=== PATIENT | female | born 1995 | race Two or more races ===

== ENCOUNTER 2016-05-21 09:45 | Emergency (ER) | payer OTHER ==
[2016-05-21 09:52] VITALS: BMI 39.4
[2016-05-21] MEDS ORDERED: diphenhydrAMINE HCL 25 MG CAPSULE (FP) PO ONE ×2 (10:23→10:33)
--- NOTE | 2016-05-21 10:25 | PDOC ---
History of Present Illness - General Chief Complaint: Pain, Acute Stated Complaint: PAIN Time Seen by Provider: 05/21/16 10:05 History Source: Patient Exam Limitations: No Limitations - History of Present Illness Initial Comments: CHIEF COMPLAINT: 20 y/o afebrile female with no significant PMH c/o itchy rash and continued right flank pain. HISTORY OF PRESENT ILLNESS: The patient states for the past 2 days she's had an itchy rash on her face, chest, arms. SHe is scratching so much the rash is starting to bleed. She also admits to continued right flank pain. She was seen here 3 days ago for flank pain and abd/pelvis CT was negative. She was discharged to home with percocet but hasn't taken any. She denies f/c, n/v/d, CP, SOB, hematuria, dysuria. She denies exposure to new soaps, dyes, detergents , food. She has taken Ibuprofen in the past without rash and she is taking currently. Vital signs on arrival are notable for pulse of 104. REVIEW OF SYSTEMS: GENERAL/CONSTITUTIONAL: No fever/chills. No weakness. No weight change. HEAD, EYES, EARS, NOSE AND THROAT: No change in vision. No ear pain or discharge. No sore throat. CARDIOVASCULAR: No chest pain or shortness of breath. RESPIRATORY: No cough, wheezing, or hemoptysis. GASTROINTESTINAL: +right flank pain. No nausea, vomiting, diarrhea. GENITOURINARY: No dysuria, frequency, or change in urination. MUSCULOSKELETAL: No joint or muscle swelling or pain. No neck or back pain. SKIN: +itchy red rash to face, arms, chest NEUROLOGIC: No headache, vertigo, loss of consciousness, or loss of sensation. PHYSICAL EXAM: GENERAL: The patient is awake, alert, and fully oriented, in no acute distress. She is a morbidly obese, ambulatory female, in NAD or obvious discomfort. HEAD: Normal with no signs of trauma. ENT: Pupils equal, round and reactive to light, extraocular movements intact, sclera anicteric, conjunctiva clear. Neck supple. No lip/tongue swelling. LUNGS: Clear to auscultation bilaterally. Normal excursion. No respiratory distress or use of accessory muscles. CV: RRR, S1/S2, no MRG. Cap refill < 2 sec. ABDOMEN: Soft,obese, tenderness to deep palpation of right flank and right middle abdomen. BACK: No CVA TTP b/l. EXTREMITIES: Normal range of motion, no edema. NEUROLOGICAL: Normal speech, normal gait. CN II-XII grossly intact. PSYCH: Normal mood, normal affect. SKIN: Multiple papules with erythematous base on face, anterior chest and b/l arms. Some papules are scabbed over from scratching. Past History - Past Medical History Allergies/Adverse Reactions: Allergies Allergy/AdvReac Type Severity Reaction Status Date / Time No Known Allergies Allergy Verified 05/21/16 09:53 Home Medications: Ambulatory Orders NK [No Known Home Medication] 05/21/16 Seizures: Yes (no meds) - Surgical History Cholecystectomy: Yes - Psycho/Social/Smoking Cessation Hx Anxiety: No Suicidal Ideation: No Smoking History: Never smoked Information on smoking cessation initiated: No Hx Alcohol Use: No Drug/Substance Use Hx: No Substance Use Type: None Abd/GI Specific PMHX - Complaint Specific PMHX Colitis: No Diverticulitis: No Gall Bladder Disease: Yes GERD: No Hepatitis: No Irritable Bowel Synd (IBS): No Pancreatitis: No GI Ulcer Disease: No *Physical Exam - Vital Signs Last Vital Signs Temp Pulse Resp BP Pulse Ox 98.6 F 104 H 18 147/90 99 05/21/16 09:50 05/21/16 09:50 05/21/16 09:50 05/21/16 09:50 05/21/16 09:50 Medical Decision Making - Medical Decision Making A/P: 20 y/o female seen here 3 days ago with right flank/abd pain here for continued pain and rash. Pt had labs and CT scan of abd performed 3 days ago - will not repeat imaging. Plan is as follows: 1. UA/hcg/culture 2. transvaginal ultrasound 3. Kidney ultrasound 4. PO benadryl Transvaginal Ultrasound IMPRESSION: Normal pelvic exam Kidney ultrasound IMPRESSION: Morphologically normal kidneys, with no evidence of nephrolithiasis , hydronephrosis. Pt will be discharged to home with instructions to take Benadryl for rash and try not to scratch the rash. She was instructed to f/u with her PCP within 1 week for both abd pain and rash. Suggested she return to the ER with any worsening or concerning symptoms. The patient verbalizes understanding of all instructions, has no further questions and is awaiting discharge. *DC/Admit/Observation/Transfer Diagnosis at time of Disposition: Rash, Abdominal pain - Discharge Dispostion Disposition: HOME Condition at time of disposition: Improved - Referrals Referrals: Zarina Bradford MD [Primary Care Provider] - Call tomorrow - Patient Instructions Printed Discharge Instructions: DI for Rash, DI for Abdominal Pain-Adult Additional Instructions: Discharge Instructions: -Take over the counter benadryl for itching -Try to avoid scratching the mask -Follow up with your primary care physician within 1 week -Return to the ER with any worsening or concerning symptoms
[2016-05-21 10:55] LABS: URINE APPEARANCE SLCLOUDY; URINE BILIRUBIN NEGATIVE (NEGATIVE); URINE BLOOD NEGATIVE (NEGATIVE); URINE COLOR YELLOW; URINE GLUCOSE (UA) NEGATIVE (NEGATIVE); URINE KETONE NEGATIVE (NEGATIVE); URINE NITRITE NEGATIVE (NEGATIVE); URINE PROTEIN NEGATIVE (NEGATIVE); URINE UROBILINOGEN NEGATIVE E.U./dl (0.2-1.0)
[2016-05-21 10:59] LABS: URINE LEUK ESTERASE 2+ (NEGATIVE)
[2016-05-21 11:01] LABS: URINE BACTERIA RARE /hpf (NONE SEEN); URINE MUCUS RARE; URINE RBC 3 /hpf (0-3); URINE WBC 11 /hpf (3-5)
[2016-05-21 14:24] VITALS: BP 121/69; PULSE 85; TEMP 98.1
== END 2016-05-21 14:24 | disposition home or self-care (01) ==
LOC: JER 09:45
DX: R21 Rash and other nonspecific skin eruption (principal); R10.31 Right lower quadrant pain
CPT/HCPCS: 76775-TC; 76830-TC; 81003; 81015; 84703; 87086; 99284-25

== ENCOUNTER 2016-12-31 17:58 | Emergency (ER) | payer OTHER ==
[2016-12-31 18:13] VITALS: BMI 35.4
[2016-12-31 18:49] VITALS: BP 131/69; PULSE 81; TEMP 98.1
--- NOTE | 2016-12-31 20:00 | PN ---
Progress Note (short form) - Note Progress Note: pt sent from er with vicky mcnair at 21 weeks. She was cleared obstetrically and sent back to the ER
== END 2016-12-31 19:50 | disposition home or self-care (01) ==
LOC: SUPCPDRO 17:58 → JER 17:58
DX: O26.892 Other specified pregnancy related conditions, second trimester (principal); Z3A.22 22 weeks gestation of pregnancy
CPT/HCPCS: 99281-25

== ENCOUNTER 2017-04-22 20:07 | Emergency (ER) | payer OTHER ==
--- NOTE | 2017-04-22 20:12 | PDOC ---
Rapid Medical Evaluation Medical Evaluation: Allergies Allergy/AdvReac Type Severity Reaction Status Date / Time No Known Allergies Allergy Verified 04/14/17 01:27 04/22/17 20:11 I have performed a brief in person evaluation of this patient. The patient presents with chief complaint of : lower abd pain 38 weeks , no vaginal bleeding , Pertinent PE findings: 38 weeks with sharp lower abd pain I have ordered the following: sent to labor and delivery The patient will proceed to the ER for further evaluation.
[2017-04-22 20:13] VITALS: BMI 38.6
[2017-04-22 21:52] VITALS: BP 105/64; PULSE 82; TEMP 98.3
== END 2017-04-22 23:00 | disposition left against medical advice (07) ==
LOC: JER 20:07
DX: Z53.21 Procedure and treatment not carried out due to patient leaving prior to being seen by health care provider (principal)
CPT/HCPCS: 99281-25

== ENCOUNTER 2017-05-14 15:00 | Inpatient (IN) | payer OTHER ==
[2017-05-14] MEDS ORDERED: DINOPROSTONE 10 MG VAGINAL SUPPOSITORY VG ONE (15:45)
[2017-05-14 15:55] VITALS: BMI 38.6
[2017-05-14] MEDS ORDERED: BUTORPHANOL TARTRATE 1 MG/ML VIAL IVPB ONE (18:04)
[2017-05-14] MEDS ORDERED: PROMETHAZINE HCL 25 MG/1 ML VIAL IVPUSH ONE (18:04)
[2017-05-14] MEDS ORDERED: SODIUM PHOSPHATE/NA BIPHOS 133 ML ENEMA PR ONE (18:07)
--- NOTE | 2017-05-14 18:14 | HP ---
Past Medical History - Primary Care Physician PCP:: Hanh Blanco - Admission Chief Complaint: 21 yrs , 41 weeks by sono admitted for Induction of labor. sono on 05/10/17 Sliup,, cephalic, vx , efw 7'5" , luis e 9.1 cm . post dates monitired by NST & Bpp 12/25 History of Present Illness: Pnc at , [facility] no wt gain during pregn, intially loss of wt from 237 t0 231 , gradually to 224 , gained back to 227, again down to 224 lbs then maintained . serial sonogram done for growth by MFM , reviewed. NT Screen & Modified Sequential neg . 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 No: Hepatitis B Renal/: No: UTI ...: 1 ...Para: 0 ...LMP: 07/31/16 ... Weeks Gestation by Dates: 41 ...EDC by Dates: 05/07/17 ...EDC by Sono: 05/07/17 (41 weeks by sono ) Heme/Onc: No: Anemia Infectious Disease: No: AIDS, HIV, STD's Psych: No: Addictions, Anxiety, Bipolar, Depression Endocrine: No: Diabetes Mellitus - Past Surgical History Past Surgical History: Yes: Cholecystectomy (2010) Hx Myomectomy: No Hx Transabdominal Cerclage: No - Smoking History Smoking history: Never smoked Have you smoked in the past 12 months: No - Alcohol/Substance Use Hx Alcohol Use: No History of Substance Use: reports: None - Social History History of Recent Travel: No Home Medications - Allergies Allergies/Adverse Reactions: Allergies Allergy/AdvReac Type Severity Reaction Status Date / Time No Known Allergies Allergy Verified 05/10/17 13:15 - Home Medications Home Medications: Ambulatory Orders Vit No.130/Iron/Folic [ Vitamins] 1 each PO DAILY 04/14/17 Ferrous Gluconate [Iron] 256 mg PO DAILY 05/10/17 Physical Exam - Maternity Vital Signs: Vital Signs Temperature 97.6 F 05/14/17 16:00 Pulse Rate 80 05/14/17 17:00 Respiratory Rate 18 05/14/17 17:00 Blood Pressure 122/70 05/14/17 17:00 O2 Sat by Pulse Oximetry (%) Selected Entries 05/14/17 15:46 Weight 225 lb Constitutional: Yes: Well Nourished, No Distress, Obese Eyes: Yes: WNL HENT: Yes: WNL, Normocephalic Neck: Yes: WNL Cardiovascular: Yes: WNL, Regular Rate and Rhythm Lungs: Clear to auscultation Breast(s): Yes: WNL - Abdominal Exam/OB Fundal Height: 40 Number of Fetuses: Single Presentation: Vertex Contractions: Yes Regularity: Irregular (7-8 min) Intensity: Unaware Monitor Mode: External Heart Rate (range): 140-150 Heart Rate Location: [facility] Category: I Accelerations: Uniform Decelerations: None - Vaginal Exam/OB Vaginal Bleediing: No Speculum Exam: No Dilatation (cm): close Effacement (%): 50% Amniotic Membrane Status: Intact Presentation: Vertex/Position Station: -3 (exam at 5.35 PM) - Physical Exam Musculoskeletal: Yes: WNL Extremities: Yes: WNL. No: Calf Tenderness Edema: Yes Edema: LLE: 1+, RLE: 1+ Integumentary: Yes: Incision (lap choly scars), Tattoos Deep Tendon Reflex Grade: Normal +2 ...Motor Strength: WNL Psychiatric: Yes: WNL, Alert, Oriented - Labs Lab Results: Laboratory Tests 05/14/17 05/14/17 05/14/17 18:00 18:00 18:00 WBC 7.3 D Hgb 11.2 D Hct 33.7 D Plt Count 246 Neutrophils % 62.1 Lymphocytes % 30.2 Monocytes % 7.1 PT with INR 10.80 INR 0.96 PTT (Actin FS) 26.9 Sodium Potassium Chloride Carbon Dioxide BUN Creatinine Random Glucose Blood Type B POSITIVE 05/14/17 18:00 WBC Hgb Hct Plt Count Neutrophils % Lymphocytes % Monocytes % PT with INR INR PTT (Actin FS) Sodium 139 Potassium 3.7 Chloride 108 H Carbon Dioxide 21 D BUN 6 L D Creatinine 0.4 L D Random Glucose 93 Blood Type Laboratory Tests 05/14/17 18:00 Blood Type B POSITIVE Antibody Screen Negative Problem List - Problems (1) Post term at 41 weeks gestation Code(s): O48.0 - POST-TERM ; Z3A.41 - 41 WEEKS GESTATION OF (2) Elective induction of labor planned Code(s): TXC9985 - (3) Obese Code(s): E66.9 - OBESITY, UNSPECIFIED Qualifiers: Obesity type: due to excess calories Obesity classification: adult class 2 (BMI 35 - 39.9) Assessment/Plan 21 yrs 41 weeks gestation gbs neg , admitted for induction of labor Plan Cervidil inserted at 5.35 PM vaginal delivery trial
[2017-05-14] MEDS ORDERED: DEXTROSE 5%-LACTATED RINGERS 1,000 ML IV SCH (18:15)
[2017-05-14 18:56] LABS: BASO % 0.4 % (0-2.0); EOS % 0.2 % (0-4.5); HEMATOCRIT 33.7 % (32.4-45.2); HEMOGLOBIN 11.2 GM/dL (10.7-15.3); LYMPH % 30.2 % (8-40); MCH 27.7 pg (25.7-33.7); MCHC 33.2 g/dl (32.0-36.0); MEAN CELL VOLUME 83.2 fl (80-96); MEAN PLT VOLUME 9.3 fl (7.5-11.1); MONO % 7.1 % (3.8-10.2); NEUT % 62.1 % (42.8-82.8); PLATELET COUNT 246 K/MM3 (134-434); RBC 4.05 M/mm3 (3.60-5.2); RDW 14.3 % (11.6-15.6); WHITE BLOOD COUNT 7.3 K/mm3 (4.0-10.0)
[2017-05-14 19:17] LABS: ANION GAP 10 (8-16); BLOOD UREA NITROGEN 6 mg/dL (7-18); CALCIUM 7.9 mg/dL (8.5-10.1); CHLORIDE 108 mmol/L (98-107); CO2 21 mmol/L (21-32); CREATININE 0.4 mg/dL (0.55-1.02); GLUCOSE,RANDOM 93 mg/dL (74-106); POTASSIUM 3.7 mmol/L (3.5-5.1); SODIUM 139 mmol/L (136-145)
[2017-05-14 19:46] LABS: INR 0.96 (0.82-1.09); PROTHROMBIN TIME (PATIENT) 10.8 SEC (9.98-11.88)
[2017-05-14 19:48] LABS: ACTIVATED PTT 26.9 SECONDS (26.9-34.4)
[2017-05-14] MEDS ORDERED: BUTORPHANOL TARTRATE 1 MG/ML VIAL ONE ×2 (23:19)
[2017-05-14] MEDS ORDERED: PROMETHAZINE HCL 25 MG/1 ML VIAL ONE (23:19)
[2017-05-15] MEDS ORDERED: FENTANYL/BUPIVACAINE/NS/PF - PCEA - 50 ML DISP.SYRIN EP ONE ×2 (01:59→06:32)
[2017-05-15] MEDS: ELECTROLYTE-148 SOLN 1,000 ML IV SCH ×2 (02:00→03:50)
--- NOTE | 2017-05-15 02:04 | PN ---
Progress Note, Labor Vaginal Exam #1 Labor Exam Date: 05/15/17 Labor Exam Time: 01:50 Heart Rate (range): 140-150 Dilatation: 3 Effacement (%): 70 Amniotic Membrane Status: Intact Presentation: Vertex/Position Station: -1 Remarks: fhr cat-1 uc irregular cervidil in vagina pt was given stadol 2mg + phenergan at 11.20 pm 05/14/17 c/o pain requests for epidural given at 3.00Am Selected Entries 05/15/17 05/15/17 00:00 01:00 Temperature 98.5 F Pulse Rate 68 67 Blood Pressure 120/66 131/75 3.25 am cervidil removed pelvic findings same as above varable decel noted, , turn patient on lt side fhr corrected uc 4-5-6 min apart plan pitocin augmentation Vaginal Exam #2 Labor Exam Date: 05/15/17 Labor Exam Time: 06:50 Heart Rate (range): 150 Dilatation: 5 Effacement (%): 100 Amniotic Membrane Status: Ruptured (AROM clear) Presentation: Vertex/Position Station: 0 Remarks: FHR cat-1 uc 2-4 min scalp electrode applied patient does not have pain relief with epidural . call anesthesiologist to revise epidural analgesia , done at 7.45 AM Selected Entries 05/15/17 05/15/17 06:00 06:30 Temperature 97.6 F Pulse Rate 75 72 Blood Pressure 122/81 120/76 Vaginal Exam #3 Labor Exam Date: 05/15/17 Labor Exam Time: 09:10 Heart Rate (range): 140 Dilatation: 10 Effacement (%): 100 Amniotic Membrane Status: Ruptured Presentation: Vertex/Position Station: +2 Remarks: fhr cat-1 uc q 2-3 min encourage tp push
[2017-05-15] MEDS ORDERED: FENTANYL/BUPIVACAINE/NS/PF - PCEA - 50 ML DISP.SYRIN EP SCH (03:00)
[2017-05-15] MEDS ORDERED: OXYTOCIN 15 UNITS/ LR 250 ML 15 UNIT/250 ML INFUS.BAG IVPB SCH (04:00)
[2017-05-15] MEDS ORDERED: OXYTOCIN 20 UNITS in 0.9% NS 40 UNIT/2,000 ML INFUS.BAG IV ONE (09:12)
[2017-05-15] MEDS ORDERED: LIDOCAINE HCL 1% PRESERVATIVE FREE - 30ML VIAL ONE (09:18)
[2017-05-15] MEDS: OXYTOCIN 20 UNITS in 0.9% NS 20 UNIT/1,000 ML INFUS.BAG IV SCH ×2 (09:48→11:00)
[2017-05-15] MEDS: IBUPROFEN 600 MG TABLET (FP) PO PRN ×2 (10:30→21:08)
[2017-05-15] MEDS: ACETAMINOPHEN 325 MG TABLET (FP) PO PRN ×2 (10:30→21:07)
[2017-05-15] MEDS ORDERED: BENZOCAINE 20% 57 GM BOTTLE TP PRN (10:38)
[2017-05-15] MEDS ORDERED: BENZOCAINE 28 GM HEMORRHOIDAL OINTMENT TP PRN (10:38)
[2017-05-15] MEDS ORDERED: METHYLERGONOVINE MALEATE 0.2 MG/1 ML AMP IM PRN (10:38)
[2017-05-15] MEDS ORDERED: WITCH HAZEL 50% (TUCKS) 40 PAD/JAR PAD TP PRN (10:38)
[2017-05-15] MEDS ORDERED: BISACODYL 10 MG SUPP.RECT RC PRN (10:38)
[2017-05-15] MEDS ORDERED: oxyCODONE HCL 5 MG TABLET PO PRN (10:38)
--- NOTE | 2017-05-15 10:48 | PN ---
Delivery - Delivery Vaginal Delivery: No Problems, Spontaneous (loose loop of cord around the neck x1 untangled before delivary of shoulder) Type of Anesthesia: Local, Epidural Episiotomy/Laceration: Midline (sutured with chr catguu #2/0 in layers) EBL (cc): 400 Delivery, Single - Stages of Labor Date 1st Stage Initiatied: 05/14/17 Time 1st Stage Initiated: 23:00 Date 2nd Stage Initiated: 05/15/17 Time 2nd Stage Initiated: 09:10 Date of Delivery: 05/15/17 Time of Delivery: 09:44 Date Placenta Delivered: 05/15/17 Time Placenta Delivered: 09:48 Placenta: Yes: Spontaneous, Uterine Exploration - Condition of Infant Molding 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 PNC at [address] [place] [address] Cervidil inserted on 05/14/17 Stadol + phenergan iv followed by epidural analgesia was given Pitocin Augmentation was started Intrapartum course was uneventful
[2017-05-15] MEDS: FERROUS SO4 325 MG TABLET (FP) PO SCH (16:51)
[2017-05-16] MEDS: ACETAMINOPHEN 325 MG TABLET (FP) PO PRN ×4 (06:11→22:01)
[2017-05-16] MEDS: IBUPROFEN 600 MG TABLET (FP) PO PRN ×4 (06:12→22:01)
[2017-05-16 08:39] LABS: BASO % 0.3 % (0-2.0); EOS % 0.6 % (0-4.5); HEMATOCRIT 28.5 % (32.4-45.2); HEMOGLOBIN 9.4 GM/dL (10.7-15.3); LYMPH % 24.2 % (8-40); MCH 27.7 pg (25.7-33.7); MCHC 32.9 g/dl (32.0-36.0); MEAN CELL VOLUME 84.1 fl (80-96); MEAN PLT VOLUME 9.2 fl (7.5-11.1); MONO % 5.8 % (3.8-10.2); NEUT % 69.1 % (42.8-82.8); PLATELET COUNT 185 K/MM3 (134-434); RBC 3.38 M/mm3 (3.60-5.2); RDW 14.5 % (11.6-15.6); WHITE BLOOD COUNT 10.2 K/mm3 (4.0-10.0)
[2017-05-16] MEDS: FERROUS SO4 325 MG TABLET (FP) PO SCH ×2 (08:57→17:07)
[2017-05-16] MEDS: PRENATAL VITAMINS W/ FOLIC ACID TABLET (FP) PO SCH (09:23)
--- NOTE | 2017-05-16 09:28 | PN ---
Post Progress Note - Subjective Subjective: 21 yo Para 1 status post vaginal delivery, seen and evaluated. Doing well, no complaints. Post Day: 1 Type of Delivery: Vital Signs: Vital Signs Temperature 98.6 F 05/16/17 08:20 Pulse Rate 70 05/16/17 08:20 Respiratory Rate 18 05/16/17 08:20 Blood Pressure 108/53 05/16/17 08:20 O2 Sat by Pulse Oximetry (%) 100 05/15/17 11:00 Breast Exam: Yes: Soft Uterus: Yes: Fundus Firm Abdomen/GI: Yes: Abdomen soft, Tolerating PO Lochia: Yes: Rubra Lochia, amount: Small Extremities: Yes: Calves non-tender Activity: Ambulating - Labs Labs: CBC WBC 10.2 K/mm3 (4.0-10.0) H D 05/16/17 08:00 RBC 3.38 M/mm3 (3.60-5.2) L 05/16/17 08:00 Hgb 9.4 GM/dL (10.7-15.3) L D 05/16/17 08:00 Hct 28.5 % (32.4-45.2) L D 05/16/17 08:00 MCV 84.1 fl (80-96) 05/16/17 08:00 MCH 27.7 pg (25.7-33.7) 05/16/17 08:00 MCHC 32.9 g/dl (32.0-36.0) 05/16/17 08:00 RDW 14.5 % (11.6-15.6) 05/16/17 08:00 Plt Count 185 K/MM3 (134-434) D 05/16/17 08:00 MPV 9.2 fl (7.5-11.1) 05/16/17 08:00 Neutrophils % 69.1 % (42.8-82.8) 05/16/17 08:00 Lymphocytes % 24.2 % (8-40) 05/16/17 08:00 Monocytes % 5.8 % (3.8-10.2) 05/16/17 08:00 Eosinophils % 0.6 % (0-4.5) D 05/16/17 08:00 Basophils % 0.3 % (0-2.0) 05/16/17 08:00 Problem List - Problems (1) Status post normal vaginal delivery Code(s): [id number] - Assessment/Plan Status post vaginal delivery Stable Continue routine care
[2017-05-16] MEDS ORDERED: DIPHTH,PERTUSS(ACELL),TET 0.5 ML DISP.SYRIN IM ONE (11:45)
[2017-05-16] MEDS ORDERED: FLU VACC QS2017-18 36MOS UP/PF 60 MCG/0.5 ML SYRINGE IM ONE (13:00)
[2017-05-16] MEDS ORDERED: SENNOSIDES/DOCUSATE COMBO (SENNA PLUS) TABLET (UD) PO PRN (22:00)
[2017-05-17] MEDS: IBUPROFEN 600 MG TABLET (FP) PO PRN (02:58)
[2017-05-17] MEDS: ACETAMINOPHEN 325 MG TABLET (FP) PO PRN (03:00)
[2017-05-17] MEDS: FERROUS SO4 325 MG TABLET (FP) PO SCH (08:09)
[2017-05-17 08:57] VITALS: BP 138/88; PULSE 66; TEMP 97.5
--- NOTE | 2017-05-17 09:34 | DS ---
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 Vital Signs: Vital Signs Temperature 97.5 F L 05/17/17 08:56 Pulse Rate 66 05/17/17 08:56 Respiratory Rate 20 05/17/17 08:56 Blood Pressure 138/88 05/17/17 08:56 O2 Sat by Pulse Oximetry (%) 100 05/15/17 11:00 Constitutional: Yes: Well Nourished Eyes: Yes: WNL HENT: Yes: WNL Neck: Yes: WNL Cardiovascular: Yes: WNL, Regular Rate and Rhythm Respiratory: Yes: WNL Gastrointestinal: Yes: WNL, Normal Bowel Sounds ...Rectal Exam: Yes: WNL Renal/: Yes: WNL Pelvis: Yes: WNL External Genitalia: Yes: Normal ....Post : Yes: Uterus firm, Uterus non-tender, Moderate lochia rubra ( perineum episiotomy healing , soreness less) Breast(s): Yes: WNL (soft , BF) Musculoskeletal: Yes: WNL Extremities: Yes: WNL. No: Calf Tenderness Edema: Yes Edema: LLE: 1+, RLE: 1+ Integumentary: Yes: Tattoos Neurological: Yes: WNL, Alert, Oriented ...Motor Strength: WNL Psychiatric: Yes: WNL, Alert, Oriented Labs: CBC, BMP 05/16/17 08:00 05/14/17 18:00 Delivery - Delivery Vaginal Delivery: No Problems, Spontaneous (loose loop of cord around the neck x1 untangled before delivary of shoulder) Type of Anesthesia: Local, Epidural Episiotomy/Laceration: Midline EBL (cc): 400 Delivery, Single - Stages of Labor Date 1st Stage Initiatied: 05/14/17 Time 1st Stage Initiated: 23:00 Date 2nd Stage Initiated: 05/15/17 Time 2nd Stage Initiated: 09:10 Date of Delivery: 05/15/17 Time of Delivery: 09:44 Time Placenta Delivered: 09:48 Placenta: Yes: Spontaneous, Uterine Exploration - Condition of Infant 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 PNC at , [facility] Cervidil inserted on 05/14/17 Stadol + phenergan iv followed by epidural analgesia was given Pitocin Augmentation was started Intrapartum course was uneventful pp course uneventful . anemia counselled discharge today Discharge Summary Reason For Visit: INDUCTION OF LABOR Current Active Problems Anemia (Acute) Elective induction of labor planned (Acute) Obese (Acute) Post term at 41 weeks gestation (Acute) Status post normal vaginal delivery (Acute) Condition: Stable - Instructions Diet, Activity, Other Instructions: Post Instructions DIET: Continue good diet high in protein, calcium, and iron rich foods. Drink at least eight (8) glasses of water daily in addition to other fluids. ct Regular diet MEDICATIONS: Continue vitamins and iron as previously directed. Motrin and Tylenol may be taken for minor discomfort. ACTIVITY: Mild to moderate exercise may be started in two (2) weeks. Take frequent rest periods. Resume normal activity after six (6) week check up. WOUND CARE OF OPERATIVE SITE: Continue use of perineal bottle until vaginal discharge stops. Keep area clean. Shower daily. Keep abdominal wound dry. Report any drainage or redness to physician. Tub baths, tampons and douches are not permitted for [address] Breast feeding & or Bottle feeding BREAST CARE: (For those that are not breast feeding): If engorgement occurs: Wear tight fitting bra. Take Tylenol or Motrin for pain. Apply cold packs (ice in bags to each breast ) FAMILY PLANNING: There are many control alternatives to pursue and they should be discussed at your first office visit. You may resume sexual activity after your six (6) week check up. (Remember, breast feeding is not a contraceptive) NEXT PHYSICIAN APPOINTMENT: Be certain to call for a six (6) week appointment, unless otherwise directed. Call Clinic or got to Emergency Dept if you have any of the following: Heavy vaginal bleeding Painful urination Leg pain Unusual odor noted to vaginal bleeding High fever Red streaking noted on breast Referrals: Hanh Blanco MD [Staff Physician] - Disposition: HOME - Home Medications Comprehensive Discharge Medication List: Ambulatory Orders Vit No.130/Iron/Folic [ Tablet] 1 each PO DAILY 04/14/17 Ferrous Gluconate [Iron] 256 mg PO DAILY 05/10/17 Acetaminophen [Tylenol .Regular Strength -] 650 mg PO Q3H PRN tablet 05/16/17 Ferrous Sulfate [Feosol] 325 mg PO BIDWM #60 tab 05/16/17 Ibuprofen [Motrin -] 200 mg PO Q4H PRN tablet 05/16/17 Vitamins (Sjr) - 1 tab PO DAILY tablet 05/16/17
[2017-05-17] MEDS: PRENATAL VITAMINS W/ FOLIC ACID TABLET (FP) PO SCH (09:57)
== END 2017-05-17 13:00 | disposition home or self-care (01) | DRG 560 ==
LOC: JLDR 15:00 → J3W 05-15 12:15
PROVIDERS: ADMIT Obstetrics & Gynecology; ATTEND Obstetrics & Gynecology
PROC: 10E0XZZ Delivery of Products of Conception, External Approach (ICD-10-PCS; principal; 2017-05-15)
DX: O48.0 Post-term pregnancy (principal); O69.81X0 Labor and delivery complicated by cord around neck, without compression, not applicable or unspecified; O99.213 Obesity complicating pregnancy, third trimester; E66.09 Other obesity due to excess calories; Z68.38 Body mass index [BMI] 38.0-38.9, adult; Z3A.41 41 weeks gestation of pregnancy; Z37.0 Single live birth
CPT/HCPCS: 36415; 59409; 80048; 85025; 85610; 85730; 86593; 86850; 86900; 86901; 90686; 90715; G0008

== ENCOUNTER 2017-06-30 02:31 | Emergency (ER) | payer OTHER ==
[2017-06-30 02:55] VITALS: BP 143/106; PULSE 60; TEMP 98; BMI 36.7
[2017-06-30] MEDS ORDERED: BUPIVACAINE HCL/PF (5 MG/ML) 30 ML VIAL IJ ONE (02:58)
--- NOTE | 2017-06-30 02:58 | PDOC ---
History of Present Illness - General Chief Complaint: Pain Stated Complaint: FEVER/VOMITING/STOMACH PAIN/EAR PAIN Time Seen by Provider: 06/30/17 02:43 - History of Present Illness Initial Comments: 06/30/17 02:58 CHIEF COMPLAINT: pain HISTORY OF PRESENT ILLNESS: 21 yo F with no significant PMH presents to ED with pain "from inside the top of my mouth to my ear." Patient reports having a broken tooth and was told that she has "to get my wisdom teeth out." Patient reports that she "had a fever yesterday" but denies any fever today. She denies any URI symptoms but reports multiple episodes of vomiting today from the pain. Patient reports that she is currently on her period and there is no chance of . No recent travel or sick contacts. PAST MEDICAL HISTORY: Denies past medical history FAMILY HISTORY: Denies SOCIAL HISTORY: Denies tobacco, alcohol, illicit drug use. SURGICAL HISTORY: Denies ALLERGIES: No known drug allergies REVIEW OF SYSTEMS General/Constitutional: Fever yesterday, none now. Denies weakness, weight change. HEENT: Left upper tooth pain radiating to left ear and jaw. Denies change in vision. Denies sore throat. Cardiovascular: Denies chest pain or shortness of breath. Respiratory: Denies cough, wheezing, or hemoptysis. Gastrointestinal: Denies nausea, vomiting, diarrhea or constipation. Denies rectal bleeding. Genitourinary: Denies dysuria, frequency, or change in urination. Musculoskeletal: Denies joint or muscle swelling or pain. Denies neck or back pain. Skin and breasts: Denies rash or easy bruising. Neurologic: Denies headache, vertigo, loss of consciousness, or loss of sensation. PHYSICAL EXAM General Appearance: Well-appearing, appropriately dressed. No apparent distress. HEENT: Poor dentition with multiple fillings and caries. EOMI, PERRLA, normal ENT inspection, normal voice, TMs normal, pharynx normal. No conjunctival pallor. No photophobia, scleral icterus. Respiratory/Chest: Lungs CTAB. Cardiovascular: RRR. S1, S2. Gastrointestinal/Abdominal: Normal bowel sounds. Abdomen soft, non-distended. No tenderness or rebound tenderness. No organomegaly, pulsatile mass, guarding , hernia, hepatomegaly, splenomegaly. Musculoskeletal/Extremities: Normal inspection. FROM of all extremities, normal capillary refill. Pelvis Stable. No CVA tenderness. No tenderness to extremities, pedal edema, swelling, erythema or deformity. Integumentary: Appropriate color, dry, warm. No cyanosis, erythema, jaundice or rash Neurologic: transport engineer II-XII intact. Fully oriented, alert. Appropriate mood/affect. Motor strength 5/5. No appreciable EOM palsy, facial droop or sensory deficit. 06/30/17 03:26 Past History - Past Medical History Allergies/Adverse Reactions: Allergies Allergy/AdvReac Type Severity Reaction Status Date / Time No Known Allergies Allergy Verified 06/30/17 02:51 Home Medications: Ambulatory Orders Acetaminophen W/ Codeine #3 [Tylenol # 3 -] 1 tab PO Q8H PRN #10 tablet MDD 3 Clindamycin [Cleocin -] 300 mg PO Q6HPO #28 capsule 06/30/17 Asthma: No Cancer: No Cardiac Disorders: No COPD: No Diabetes: No HTN: No Seizures: No Thyroid Disease: No Other medical history: Pt denies - Surgical History Cholecystectomy: Yes - Suicide/Smoking/Psychosocial Hx Smoking History: Never smoked Have you smoked in the past 12 months: No Information on smoking cessation initiated: No Hx Alcohol Use: No Drug/Substance Use Hx: No Substance Use Type: None Hx Substance Use Treatment: No *Physical Exam - Vital Signs Last Vital Signs Temp Pulse Resp BP Pulse Ox 98.0 F 60 18 143/106 100 06/30/17 02:51 06/30/17 02:51 06/30/17 02:51 06/30/17 02:51 06/30/17 02:51 Medical Decision Making - Medical Decision Making 06/30/17 03:29 21 yo F with no significant PMH presents to ED with pain "from inside the top of my mouth to my ear." Superior alveolar nerve block performed. Patient expressed immediate relief. Will rx Clindamycin and Tylenol #3. Advised patient to take medications as prescribed and follow up with dentist on Saturday. Advised patient of signs and symptoms for return to ED. Patient verbalized understanding and agrees to plan. *DC/Admit/Observation/Transfer Diagnosis at time of Disposition: Pain, dental - Discharge Dispostion Disposition: HOME Condition at time of disposition: Stable Admit: No - Prescriptions Prescriptions: Acetaminophen W/ Codeine #3 [Tylenol # 3 -] 1 tab PO Q8H PRN #10 tablet MDD 3 PRN Reason: Pain - Referrals Referrals: Zarina Bradford MD [Primary Care Provider] - - Patient Instructions Printed Discharge Instructions: DI for Dental Pain Additional Instructions: Take medications as prescribed. Do NOT drive, drink alcohol, or operate machinery while taking Tylenol #3. As discussed, you MUST follow up with your dentist on Saturday. If you develop any persistent fevers, vomiting, diarrhea, or any new or worsening symptoms, please return to the ER. - Post Discharge Activity
[2017-06-30] MEDS ORDERED: BUPIVACAINE HCL/PF 0.5% (5MG/ML) 10 ML VIAL ONE (03:13)
[2017-06-30] MEDS ORDERED: LIDOCAINE HCL 2% (20ML MULTI-DOSE VIAL) NR ONE (03:13)
== END 2017-06-30 03:46 | disposition home or self-care (01) ==
LOC: JER 02:31
PROC: 3E013BZ Introduction of Anesthetic Agent into Subcutaneous Tissue, Percutaneous Approach (ICD-10-PCS; principal; 2017-06-30)
DX: K02.9 Dental caries, unspecified (principal)
CPT/HCPCS: 84703; 96372; 99281-25

== ENCOUNTER 2018-08-13 10:04 | Emergency (ER) | payer OTHER ==
[2018-08-13 10:21] VITALS: TEMP 97.6; BMI 35.0
--- NOTE | 2018-08-13 10:51 | PDOC ---
History of Present Illness - General Chief Complaint: Pain Stated Complaint: 4 MONTH AK /ABD PAIN Time Seen by Provider: 08/13/18 10:44 History Source: Patient - History of Present Illness Timing/Duration: reports: constant Quality: reports: moderate Abdominal Pain Onset Location: reports: epigastric Pain Radiation: reports: no radiation Past History - Past Medical History Allergies/Adverse Reactions: Allergies Allergy/AdvReac Type Severity Reaction Status Date / Time No Known Allergies Allergy Verified 08/13/18 10:16 Home Medications: Ambulatory Orders Acetaminophen W/ Codeine #3 [Tylenol # 3 -] 1 tab PO Q8H PRN #10 tablet MDD 3 Clindamycin [Cleocin -] 300 mg PO Q6HPO #28 capsule 06/30/17 Asthma: No Cancer: No Cardiac Disorders: No COPD: No Diabetes: No HTN: No Seizures: No Thyroid Disease: No - Surgical History Cholecystectomy: Yes - Suicide/Smoking/Psychosocial Hx Smoking History: Never smoked Have you smoked in the past 12 months: No Hx Alcohol Use: No Drug/Substance Use Hx: No Substance Use Type: None Hx Substance Use Treatment: No Abd/GI Specific PMHX - Complaint Specific PMHX Colitis: No Diverticulitis: No Gall Bladder Disease: Yes GERD: No Hepatitis: No Irritable Bowel Synd (IBS): No Pancreatitis: No GI Ulcer Disease: No Review of Systems - Review of Systems Constitutional: No: Chills, Fever Respiratory: No: Shortness of Breath Cardiac (ROS): No: Chest Pain ABD/GI: Yes: Diarrhea, Nausea, Vomiting : No: Dysuria, Flank Pain, Hematuria *Physical Exam - Vital Signs Last Vital Signs Temp Pulse Resp BP Pulse Ox 97.6 F 92 H 18 131/74 97 08/13/18 10:17 08/13/18 10:17 08/13/18 10:17 08/13/18 10:17 08/13/18 10:17 - Physical Exam General Appearance: Yes: Appropriately Dressed. No: Apparent Distress HEENT: positive: Normal Voice Neck: positive: Supple Respiratory/Chest: negative: Respiratory Distress Gastrointestinal/Abdominal: positive: Normal Bowel Sounds, Tender (to epigastrium only), Soft. negative: Distended, Guarding, Rebound Musculoskeletal: negative: CVA Tenderness Integumentary: positive: Dry, Warm Neurologic: positive: Fully Oriented, Alert, Normal Mood/Affect ED Treatment Course - LABORATORY CBC & Chemistry Diagram: 08/13/18 11:45 08/13/18 11:45 Medical Decision Making - Medical Decision Making 08/13/18 10:49 22 to F, ~19 weeks w/ no issues w/ preg so far, s/p daisha remotely, here with upper abdominal pain since yesterday, described as sharp, constant, worse with food and when lying supine. Had 3 episodes of non-bloody, non- bilious vomitus yesterday. Also with 2 episodes of non-bloody watery diarrhea. No fever or chills. No recent travel, sick contacts, unusual food or antibiotic use See exam Possibly gastritis/ GERD vs gastroenteritis in 2nd trimester preg, s/p daisha remotely, unlikely uti/pyelo, no ttp over mcburneys No issues w/ preg so far No lower abd pain or vag bleed to warrant OB sono today -pain control -labs -reassess 08/13/18 11:12 08/13/18 14:05 Labs/UA neg. Pt reports that symptoms have resolved with meds. Appears well w/ NT abd on rpt exam and able to cammie po. Continues to deny any lower abdominal pain, vaginal bleed or dysuria. No utility in getting OB ultrasound here. Will discharge to continue following up with her OB. *DC/Admit/Observation/Transfer Diagnosis at time of Disposition: Epigastric abdominal pain affecting - Discharge Dispostion Condition at time of disposition: Improved - Referrals Referrals: Gladys Abreu MD [Primary Care Provider] - - Patient Instructions Additional Instructions: The cause of your symptoms might be due to gastritis or acid reflux which can be a common symptom in . Take tylenol as needed for pain and follow-up with your OB this week. Return to ED for worsening of symptoms - Post Discharge Activity
[2018-08-13] MEDS ORDERED: ACETAMINOPHEN 1000 MG/100 ML VIAL (NON FORMULARY) IVPB ONE (10:53)
[2018-08-13] MEDS ORDERED: SODIUM CHLORIDE 1,000 ML IV STA (10:54)
[2018-08-13] MEDS ORDERED: RANITIDINE HCL 150 MG/10 ML UNIT-DOSE PO ONE (10:54)
[2018-08-13] MEDS ORDERED: ONDANSETRON 4 MG/2 ML VIAL IVPUSH ONE (10:54)
--- NOTE | 2018-08-13 11:15 | PDOC ---
*Physical Exam - Vital Signs Last Vital Signs Temp Pulse Resp BP Pulse Ox 97.6 F 92 H 18 131/74 97 08/13/18 10:17 08/13/18 10:17 08/13/18 10:17 08/13/18 10:17 08/13/18 10:17 - Physical Exam Comments: 08/13/18 11:15 The patient was examined by NOREEN Dowling under my direct supervision. I personally evaluated the patient. I concur with the above findings and the plan of care. ED Treatment Course - LABORATORY CBC & Chemistry Diagram: 08/13/18 11:45 08/13/18 11:45 *DC/Admit/Observation/Transfer Diagnosis at time of Disposition: Epigastric abdominal pain affecting - Discharge Dispostion Disposition: HOME Condition at time of disposition: Improved - Referrals Referrals: Gladys Abreu MD [Primary Care Provider] - - Patient Instructions Additional Instructions: The cause of your symptoms might be due to gastritis or acid reflux which can be a common symptom in . Take tylenol as needed for pain and follow-up with your OB this week. Return to ED for worsening of symptoms - Post Discharge Activity
[2018-08-13] MEDS ORDERED: ACETAMINOPHEN INJECTION 100 ML IVPB ONE (11:45)
[2018-08-13] MEDS ORDERED: RANITIDINE HCL 150 MG TABLET (FP) ONE (11:45)
[2018-08-13] MEDS ORDERED: ONDANSETRON 4 MG/2 ML VIAL ONE (11:46)
[2018-08-13 11:49] LABS: BASO % 0.7 % (0-2.0); EOS % 0.8 % (0-4.5); HEMATOCRIT 35.8 % (32.4-45.2); HEMOGLOBIN 12.1 GM/dL (10.7-15.3); LYMPH % 24.3 % (8-40); MCH 28.2 pg (25.7-33.7); MCHC 33.9 g/dl (32.0-36.0); MEAN CELL VOLUME 83.3 fl (80-96); MEAN PLT VOLUME 8.3 fl (7.5-11.1); MONO % 7.3 % (3.8-10.2); NEUT % 66.9 % (42.8-82.8); PLATELET COUNT 268 K/MM3 (134-434); RDW 13.5 % (11.6-15.6)
[2018-08-13 12:34] LABS: ALBUMIN 3.1 g/dl (3.4-5.0); ALK PHOS 110 U/L (45-117); ANION GAP 12 MMOL/L (8-16); BILIRUBIN,TOTAL 0.2 mg/dL (0.2-1); BLOOD UREA NITROGEN 3 mg/dL (7-18); CALCIUM 8.3 mg/dL (8.5-10.1); CHLORIDE 106 mmol/L (98-107); CO2 20 mmol/L (21-32); CREATININE 0.3 mg/dL (0.55-1.3); GLUCOSE,RANDOM 97 mg/dL (74-106); LIPASE 116 U/L (73-393); POTASSIUM 3.7 mmol/L (3.5-5.1); SGOT/AST 17 U/L (15-37); SGPT/ALT 26 U/L (13-61); SODIUM 139 mmol/L (136-145); TOT PROT 6.7 g/dl (6.4-8.2)
[2018-08-13 14:04] LABS: HCG,QUALITATIVE URINE Positive
[2018-08-13 14:11] LABS: EPI CELLS 17.4 /HPF (0-5); HYALINE CASTS 35 /hpf (0-8); PH,URINE 5.5 (5.0-8.0); URINE APPEARANCE CLOUDY; URINE BACTERIA 756.6 /hpf (NEGATIVE); URINE BILIRUBIN 1+ (NEGATIVE); URINE COLOR DK YELLOW; URINE GLUCOSE (UA) NEGATIVE (NEGATIVE); URINE KETONE 1+ (NEGATIVE); URINE LEUK ESTERASE TRACE (NEGATIVE); URINE NITRITE NEGATIVE (NEGATIVE); URINE PROTEIN NEGATIVE (NEGATIVE); URINE RBC 2 /hpf (0-4); URINE WBC 22 /hpf (0-5)
[2018-08-13 14:30] VITALS: BP 112/78; PULSE 85
== END 2018-08-13 14:31 | disposition home or self-care (01) ==
LOC: JER 10:04
PROC: 3E033NZ Introduction of Analgesics, Hypnotics, Sedatives into Peripheral Vein, Percutaneous Approach (ICD-10-PCS; principal; 2018-08-13)
PROC: 3E033GC Introduction of Other Therapeutic Substance into Peripheral Vein, Percutaneous Approach (ICD-10-PCS; 2018-08-13)
PROC: 3E0337Z Introduction of Electrolytic and Water Balance Substance into Peripheral Vein, Percutaneous Approach (ICD-10-PCS; 2018-08-13)
DX: O26.892 Other specified pregnancy related conditions, second trimester (principal); Z3A.19 19 weeks gestation of pregnancy; R10.13 Epigastric pain
CPT/HCPCS: 36415; 80053; 81003; 83690; 84703; 85025; 96361; 96374; 96375; 99283-25; J0131; J7030

== ENCOUNTER 2019-01-01 03:55 | Inpatient (IN) | payer OTHER | END 2019-01-03 13:55 | disposition home or self-care (01) | LOC: JDEL 03:55 → JLDR 06:20 → J3W 15:00 ==

== ENCOUNTER 2020-02-12 23:30 | Inpatient (IN) | payer OTHER ==
[2020-02-13 01:04] LABS: BASO % 1.2 % (0-2.0); EOS % 0.5 % (0-4.5); HEMATOCRIT 34.4 % (32.4-45.2); HEMOGLOBIN 11.7 GM/dL (10.7-15.3); LYMPH % 37.1 % (8-40); MCH 28.3 pg (25.7-33.7); MCHC 34.1 g/dl (32.0-36.0); MEAN PLT VOLUME 10.2 fl (7.5-11.1); MONO % 6.2 % (3.8-10.2); PLATELET COUNT 265 K/MM3 (134-434); RBC 4.14 M/mm3 (3.60-5.2); RDW 14.1 % (11.6-15.6); WHITE BLOOD COUNT 8.4 K/mm3 (4.0-10.0)
[2020-02-13 01:17] LABS: INR 0.96 (0.83-1.09); PROTHROMBIN TIME (PATIENT) 11.3 SEC (9.7-13.0)
[2020-02-13 01:19] LABS: ACTIVATED PTT 27.7 SECONDS (25.2-36.5)
[2020-02-13] MEDS ORDERED: ELECTROLYTE-148 SOLN 1,000 ML IV SCH (01:30)
--- NOTE | 2020-02-13 01:31 | HP ---
Past Medical History - Primary Care Physician PCP:: Lisandro Daniels - Admission Chief Complaint: labor History of Present Illness: Contractions started at 5pm on 02/12/20 History Source: Patient Limitations to Obtaining History: No Limitations - Past Medical History BINDING NICKER: No: Alzheimer's, CVA, Dementia, Migraine, Multiple Sclerosis, Peripheral Neuropathy, Parkinson's, Seizure, Syncope, TIA, Vertigo, Other Cardiovascular: No: AFIB, Aneurysm, Aortic Insufficiency, Aortic Stenosis, CAD, CHF, Deep Vein Thrombosis, HTN, Hyperlipdemia, AK, Mitral Insufficiency, Mitral Stenosis, Murmur, Pulmonary Hypertension, Other Pulmonary: No: Asthma, Bronchitis, Cancer, COPD, O2 Dependent, Pneumonia, Previously Intubated, Pulmonary Embolus, Pulmonary Fibrosis, Sleep Apnea, Other Gastrointestinal: Yes: Other. No: Ascites, Cancer, Constipation, Crohn's Disease, Diverticulitis, Diverticulosis, Esophageal Varices, Gastritis, GERD, GI Bleed, Hemorrhoids, Hiatal Hernia, Inflamatory Bowel Disease, Irritable Bowel Disease, Pancreatitis, Peptic Ulcer Disease, Ulcerative Colitis Hepatobiliary: Yes: Cholelithiasis (operated in 2010). No: Hepatitis B Renal/: No: Renal Failure, Renal Inusuff, BPH, Cancer, Hematuria, Hemodialysis, Neurogenic Bladder, Renal Calculi, UTI, Other Reproductive: No: Ectopic , Endometriosis, Fibroids, PID, Polycystic Ovary Syndrome, Postmenopausal, Other Heme/Onc: No: Anemia, B12 Deficiency, Bleeding Disorder, Cancer, Current Chemotherapy, Current Radiation Therapy, Hemochromatosis, Hypercoaguable State, Myeloproliferative Synd, Sickle Cell Disease, Sickle Cell Trait, Thrombocytopenia, Other Infectious Disease: No: AIDS, C-Diff, Herpes Zoster, HIV, MRSA, STD's, Tuberculosis, VREF, Other Psych: No: Addictions, Anxiety, Bipolar, Depression, Panic, Psychosis, Schizophrenia, Other Musculoskeletal: No: Bursitis, Chronic low back pain, Hemiparesis, Hemiplegia, Osteoarthritis, Paraplegia, Other Rheumatology: No: Fibromyalgia, Gout, Lupus, Rheumatoid Arthritis, Sarcoidosis, Vasculitis, Other ENT: No: Allergic Rhinitis, Sinusitis, Other Endocrine: No: Noble's Disease, Mcgraw's Disease, Diabetes Insipidus, D iabetes Mellitus, Hyperparathyroidism, Hyperthyroidism, Hypothyroidism, Osteopenia, SIADH, Other Dermatology: No: Basal Cell, Cellulitis, Eczema, Melanoma, Psoriasis, Squamous Cell, Other - Past Surgical History Past Surgical History: Yes: None, Cholecystectomy (2010) Hx Myomectomy: No Hx Transabdominal Cerclage: No - Smoking History Smoking history: Never smoked Have you smoked in the past 12 months: No - Alcohol/Substance Use Hx Alcohol Use: No History of Substance Use: reports: None - Social History ADL: Independent History of Recent Travel: No Home Medications - Allergies Allergies/Adverse Reactions: Allergies Allergy/AdvReac Type Severity Reaction Status Date / Time No Known Allergies Allergy Verified 08/13/18 10:16 - Home Medications Home Medications: Ambulatory Orders Vitamins (Sjr) - 1 tab PO DAILY 01/01/19 Acetaminophen [Tylenol .Regular Strength -] 650 mg PO Q3H PRN tablet 01/02/19 Benzocaine [Americaine 20% [place] -] 1 spray TP PRN PRN bottle 01/02/19 Ferrous Sulfate [Feosol] 325 mg PO BIDWM tab 01/02/19 Ibuprofen [Motrin -] 200 mg PO Q4H PRN tablet 01/02/19 Vitamins (Sjr) - 1 tab PO DAILY tablet 01/02/19 Witch Lizbeth 50% (Tucks) [Tucks Pads -] 1 pad TP PRN PRN pad 01/02/19 Family Medical History Family History: Unremarkable Review of Systems - Review of Systems Constitutional: reports: No Symptoms Eyes: reports: No Symptoms HENT: reports: No Symptoms Neck: reports: No Symptoms Cardiovascular: reports: No Symptoms Respiratory: reports: No Symptoms Gastrointestinal: reports: No Symptoms Genitourinary: reports: No Symptoms Breasts: reports: No Symptoms Reported Musculoskeletal: reports: No Symptoms Integumentary: reports: No Symptoms Neurological: reports: No Symptoms Endocrine: reports: No Symptoms Hematology/Lymphatic: reports: No Symptoms Psychiatric: reports: No Symptoms Physical Exam - Maternity Vital Signs: as reported by nursing Constitutional: Yes: Well Nourished, No Distress HENT: Yes: Atraumatic Neck: Yes: Supple Cardiovascular: Yes: Regular Rate and Rhythm Breast(s): Yes: Other - Abdominal Exam/OB Number of Fetuses: Single Presentation: Vertex Contractions: Yes Regularity: Regular Intensity: Mod/Strong Monitor Mode: External Heart Rate (range): 140 Category: I Accelerations: Uniform Decelerations: None - Vaginal Exam/OB Vaginal Bleeding: No Speculum Exam: No Dilatation (cm): 7 Effacement (%): 60 Amniotic Membrane Status: Intact Presentation: Vertex/Position (asynclitic) - Physical Exam Musculoskeletal: Yes: WNL Extremities: Yes: WNL Edema: Yes Edema: LLE: Trace, RLE: Trace Integumentary: Yes: WNL ...Motor Strength: WNL Psychiatric: Yes: Alert, Oriented - Labs Lab Results: CBC, BMP 02/13/20 00:30 Imaging - Results Ultrasound: Report Reviewed Assessment/Plan 24 y/o P2 @ 39.5wks, active labor, reassuring fetals status, GBS negative. -epidural is OK -expectant management
[2020-02-13 01:45] LABS: BLOOD UREA NITROGEN 5.7 mg/dL (7-18); CALCIUM 8.5 mg/dL (8.5-10.1); CREATININE 0.4 mg/dL (0.55-1.3); POTASSIUM 3.9 mmol/L (3.5-5.1)
[2020-02-13] MEDS ORDERED: PCA PUMP NR ONE (01:49)
[2020-02-13] MEDS ORDERED: FENTANYL/BUPIVACAINE/NS/PF - PCEA - 50 ML DISP.SYRIN EP ONE ×2 (01:50→05:25)
[2020-02-13] MEDS ORDERED: BUPIVACAINE HCL/PF 0.25% (2.5MG/ML) 10 ML VIAL ONE (01:55)
[2020-02-13] MEDS ORDERED: NALOXONE HCL 0.4 MG/ML VIAL IVPUSH PRN (02:13)
[2020-02-13] MEDS ORDERED: FENTANYL/BUPIVACAINE/NS/PF - PCEA - 50 ML DISP.SYRIN EP SCH (02:15)
[2020-02-13 03:11] VITALS: BMI 42.9
--- NOTE | 2020-02-13 04:25 | PN ---
Ante-Partal Exam - Subjective Vital Signs: Vital Signs Temperature 98.4 F 02/13/20 02:10 Pulse Rate 82 02/13/20 03:30 Respiratory Rate 16 02/13/20 03:30 Blood Pressure 117/74 02/13/20 03:30 O2 Sat by Pulse Oximetry (%) 97 02/13/20 03:30 Bleeding: No Headache: No Visual changes: No Right upper quadrant pain: No - Contractions Contractions: Yes Regularity: Regular Intensity: Unaware Monitor Mode: External - Exam during Labor Heart Rate: 130 Variability: Moderate Category: I Monitor Accelerations: Present Monitor Decelerations: None Exam: Vaginal Dilatation (cm): 8 Effacement (%): 80 Amniotic Membrane Status: Ruptured Meconium Staining: Light Presentation: Vertex Station: -3 (fSE placed) Remarks: asynclitic and internal rotation attempted - Assessment/Plan Assessment/Plan: Active labor s/p epidural, minimal cervical change, AROM, FSE in place -initiate pitocin
[2020-02-13] MEDS ORDERED: OXYTOCIN 30 UNITS in 0.9% NS 30 UNIT/500 ML INFUS.BAG IVPB SCH (04:30)
[2020-02-13] MEDS ORDERED: WITCH HAZEL 50% (TUCKS) 40 PAD/JAR PAD TP PRN (06:23)
[2020-02-13] MEDS ORDERED: BENZOCAINE 28 GM HEMORRHOIDAL OINTMENT TP PRN (06:23)
[2020-02-13] MEDS ORDERED: BISACODYL 10 MG SUPP.RECT RC PRN (06:23)
[2020-02-13] MEDS ORDERED: BENZOCAINE 20% 57 GM BOTTLE TP PRN (06:23)
--- NOTE | 2020-02-13 06:23 | PN ---
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 Umbilical cord clamped after delayed and samples for gases and blood obtained. Placenta delivered spontaneously and intact, 3VC. Exam revealed firm fundus and excellent hemostasis. No perineal lacerations noted. Sponge/instrument count correct x 2 and confirmed by nurse.
[2020-02-13] MEDS ORDERED: OXYTOCIN 20 UNITS in 0.9% NS 20 UNIT/1,000 ML INFUS.BAG IV SCH (06:30)
[2020-02-13 06:46] LABS: CORD BASE EXCESS -6.8 mmol/L (0-2); CORD HCO3 19.5 mmHg (20-29); CORD PCO2 41.7 mmHg (30-78); CORD pH 7.288 (7.14-7.44)
[2020-02-13] MEDS: IBUPROFEN 600 MG TABLET (FP) PO PRN ×3 (06:58→20:33)
[2020-02-13] MEDS: ACETAMINOPHEN 325 MG TABLET (FP) PO PRN ×2 (14:14→20:33)
[2020-02-14 08:51] LABS: BASO % 0.6 % (0-2.0); EOS % 1.2 % (0-4.5); HEMATOCRIT 32.3 % (32.4-45.2); HEMOGLOBIN 10.8 GM/dL (10.7-15.3); LYMPH % 39.8 % (8-40); MCH 28.4 pg (25.7-33.7); MCHC 33.5 g/dl (32.0-36.0); MEAN CELL VOLUME 84.7 fl (80-96); MEAN PLT VOLUME 9.5 fl (7.5-11.1); MONO % 5.8 % (3.8-10.2); NEUT % 52.6 % (42.8-82.8); PLATELET COUNT 213 K/MM3 (134-434); RBC 3.81 M/mm3 (3.60-5.2); RDW 14.8 % (11.6-15.6); WHITE BLOOD COUNT 7.6 K/mm3 (4.0-10.0)
--- NOTE | 2020-02-14 08:59 | DS ---
Physical Examination Vital Signs: Vital Signs Temperature 97.9 F 02/14/20 06:00 Pulse Rate 69 02/14/20 06:00 Respiratory Rate 20 02/14/20 06:00 Blood Pressure 123/94 02/14/20 06:00 O2 Sat by Pulse Oximetry (%) 98 02/14/20 06:00 Findings/Remarks: Ambulating, tolerating PO, voiding, lochia decreased, breast feeding. PP precautions discussed. Desires infant's circumcision and all questions answered, riks and complications discussed. Constitutional: Yes: No Distress HENT: Yes: Atraumatic Neck: Yes: Supple Cardiovascular: Yes: Regular Rate and Rhythm Respiratory: Yes: Regular Gastrointestinal: Yes: Soft ...Rectal Exam: Yes: Other Renal/: Yes: Other Breast(s): Yes: Other Musculoskeletal: Yes: WNL Extremities: Yes: WNL Edema: Yes Edema: LLE: Trace, RLE: Trace Integumentary: Yes: WNL Neurological: Yes: Alert, Oriented ...Motor Strength: WNL Psychiatric: Yes: Alert, Oriented Labs: CBC, BMP 02/14/20 08:05 02/13/20 00:30 Discharge Summary Problems reviewed: Yes Reason For Visit: ADMIT LABOR Procedures: Principal: Vaginal delivery Other Procedures: Uncomplicated Hospital Course: Uncomplicated Plan of Treatment: Follow up at health center in 3-4 weeks Condition: Stable - Instructions Diet, Activity, Other Instructions: return to regular diet and activity as tolerated, follow up in 3-4 weeks from discharge at health center Referrals: Hanh Blanco MD [Staff Physician] - Lisandro Daniels MD [Staff Physician] - Disposition: HOME - Home Medications Comprehensive Discharge Medication List: Ambulatory Orders Vitamins (Sjr) - 1 tab PO DAILY 01/01/19 Acetaminophen [Tylenol .Regular Strength -] 650 mg PO Q3H PRN tablet 01/02/19 Benzocaine [Americaine 20% [place] -] 1 spray TP PRN PRN bottle 01/02/19 Ferrous Sulfate [Feosol] 325 mg PO BIDWM tab 01/02/19 Ibuprofen [Motrin -] 200 mg PO Q4H PRN tablet 01/02/19 Vitamins (Sjr) - 1 tab PO DAILY tablet 01/02/19 Witch Lizbeth 50% (Tucks) [Tucks Pads -] 1 pad TP PRN PRN pad 01/02/19 Acetaminophen [Tylenol] 325 mg PO Q6H PRN #30 capsule MDD 5 02/13/20 Ibuprofen 600 mg PO Q6H PRN #30 tablet 02/13/20 Miscellaneous Medical Supply [Breast Pump, Electronic] 1 each NR ASDIR #1 unit 02/13/20
[2020-02-14] MEDS: IBUPROFEN 600 MG TABLET (FP) PO PRN (13:41)
[2020-02-14] MEDS: ACETAMINOPHEN 325 MG TABLET (FP) PO PRN (13:41)
[2020-02-14] MEDS ORDERED: SENNOSIDES/DOCUSATE COMBO (SENNA PLUS) TABLET (UD) PO PRN (22:00)
[2020-02-15] MEDS: ACETAMINOPHEN 325 MG TABLET (FP) PO PRN (03:36)
[2020-02-15] MEDS: IBUPROFEN 600 MG TABLET (FP) PO PRN (03:37)
--- NOTE | 2020-02-15 07:07 | PN ---
Post Progress Note - Subjective Subjective: Patient reports no change since yesterday. Ambulating, tolerating PO, lochia decreased, voiding. Discharge held due to infant Post Day: 2 Type of Delivery: Vital Signs: Vital Signs Temperature 98.1 F 02/14/20 20:15 Pulse Rate 76 02/14/20 20:15 Respiratory Rate 18 02/14/20 20:15 Blood Pressure 102/42 L 02/14/20 20:15 O2 Sat by Pulse Oximetry (%) 98 02/14/20 20:15 Breast Exam: Yes: Other Uterus: Yes: Fundus Firm Abdomen/GI: Yes: Abdomen soft Lochia, amount: Small Extremities: Yes: Calves non-tender Perineum: Yes: Intact Activity: Ambulating - Labs Labs: CBC WBC 7.6 K/mm3 (4.0-10.0) 02/14/20 08:05 RBC 3.81 M/mm3 (3.60-5.2) 02/14/20 08:05 Hgb 10.8 GM/dL (10.7-15.3) 02/14/20 08:05 Hct 32.3 % (32.4-45.2) L 02/14/20 08:05 MCV 84.7 fl (80-96) 02/14/20 08:05 MCH 28.4 pg (25.7-33.7) 02/14/20 08:05 MCHC 33.5 g/dl (32.0-36.0) 02/14/20 08:05 RDW 14.8 % (11.6-15.6) 02/14/20 08:05 Plt Count 213 K/MM3 (134-434) 02/14/20 08:05 MPV 9.5 fl (7.5-11.1) 02/14/20 08:05 Absolute Neuts (auto) 4.0 K/mm3 (1.5-8.0) 02/14/20 08:05 Neutrophils % 52.6 % (42.8-82.8) 02/14/20 08:05 Lymphocytes % 39.8 % (8-40) 02/14/20 08:05 Monocytes % 5.8 % (3.8-10.2) 02/14/20 08:05 Eosinophils % 1.2 % (0-4.5) D 02/14/20 08:05 Basophils % 0.6 % (0-2.0) 02/14/20 08:05 Nucleated RBC % 0 % (0-0) 02/14/20 08:05 Assessment/Plan PPD # 2 in stable condition. Discharge held yesterday due to infant poor feeding. instructions and precautions reiterated, all questions answered. -D/C home
[2020-02-15 08:25] VITALS: BP 111/71; PULSE 73; TEMP 97.6
== END 2020-02-15 12:15 | disposition home or self-care (01) | DRG 560 ==
LOC: JDEL 23:30 → JLDR 02-13 → J3N 02-13 07:45 → J3W 02-14 15:33
PROVIDERS: ADMIT Student in an Organized Health Care Education/Training Program; ATTEND Student in an Organized Health Care Education/Training Program
PROC: 10E0XZZ Delivery of Products of Conception, External Approach (ICD-10-PCS; principal; 2020-02-13)
PROC: 10907ZC Drainage of Amniotic Fluid, Therapeutic from Products of Conception, Via Natural or Artificial Opening (ICD-10-PCS; 2020-02-13)
PROC: 10H073Z Insertion of Monitoring Electrode into Products of Conception, Via Natural or Artificial Opening (ICD-10-PCS; 2020-02-13)
DX: O48.0 Post-term pregnancy (principal); O64.0XX0 Obstructed labor due to incomplete rotation of fetal head, not applicable or unspecified; O77.0 Labor and delivery complicated by meconium in amniotic fluid; Z3A.40 40 weeks gestation of pregnancy; Z37.0 Single live birth
CPT/HCPCS: 36415; 36600; 59409; 80048; 82803; 85025; 85610; 85730; 86780; 86850; 86900; 86901; U0003

== ENCOUNTER 2023-12-05 12:44 | Emergency (ER) | payer OTHER ==
[2023-12-05 12:55] VITALS: BP 133/83; PULSE 83; RESP 16; TEMP 98.9; BMI 31.7
[2023-12-05] MEDS ORDERED: HIV POST EXPOSURE PROPHYLAXIS KIT PO ONE (14:05)
[2023-12-05 14:11] LABS: BASO % 0.7 % (0-2.0); EOS % 0.9 % (0-4.5); HEMATOCRIT 31.8 % (32.4-45.2); HEMOGLOBIN 10.3 GM/dL (10.7-15.3); LYMPH % 40.3 % (8-40); MCH 25.2 pg (25.7-33.7); MCHC 32.3 g/dl (32.0-36.0); MEAN CELL VOLUME 78.1 fl (80-96); MEAN PLT VOLUME 7.9 fl (7.5-11.1); MONO % 6.2 % (3.8-10.2); NEUT % 51.9 % (42.8-82.8); PLATELET COUNT 332 10^3/uL (134-434); RBC 4.08 M/mm3 (3.60-5.2); RDW 15.1 % (11.6-15.6); WHITE BLOOD COUNT 7.3 K/mm3 (4.0-10.0)
[2023-12-05] MEDS: HIV POST EXPOSURE PROPHYLAXIS KIT PO ONE (14:12)
[2023-12-05 14:31] LABS: POTASSIUM 4.1 mmol/L (3.5-5.1)
[2023-12-05 14:33] LABS: ALBUMIN 3.7 g/dl (3.4-5.0); BLOOD UREA NITROGEN 7.9 mg/dL (7-18); CALCIUM 8.3 mg/dL (8.5-10.1)
[2023-12-05 14:36] LABS: CREATININE 0.5 mg/dL (0.55-1.3); PHOSPHOROUS 3.2 mg/dL (2.5-4.9)
[2023-12-05 14:38] LABS: BILIRUBIN,TOTAL 0.4 mg/dL (0.2-1); TOT PROT 7.6 g/dl (6.4-8.2)
[2023-12-05 15:27] LABS: HIV INTERPRETATION NEGATIVE (NEGATIVE)
== END 2023-12-05 14:22 | disposition home or self-care (01) ==
LOC: JERFT 12:44
DX: S61.236A Puncture wound without foreign body of right little finger without damage to nail, initial encounter (principal); W46.1XXA Contact with contaminated hypodermic needle, initial encounter; Y99.0 Civilian activity done for income or pay
CPT/HCPCS: 36415; 80053; 82465; 82977; 84100; 85025; 86704; 86803; 87340; 87389; 87517; 99283-25